=== PATIENT | male | born 1960 | race Caucasian/White ===

== ENCOUNTER → 2018-11-24 | Outpatient (REF) ==
--- NOTE | 2018-11-24 13:51 | REP ---
RIGHT KNEE, FOUR VIEWS: HISTORY: Degenerative joint disease. There is no acute fracture or dislocation. There is minimal narrowing of the medial knee joint space. Osteophytes are present on the tibia and patella. Calcification is present lateral to the distal femur. This represents ligamentous or tendon calcification. IMPRESSION: Degenerative change as described above. Electronically Signed by Virgilio Michaud MD 11/24/2018 01:56 P
--- NOTE | 2018-11-24 13:52 | REP ---
REASON: Disability determination. PRIORS: None. There is severe hypertrophic degenerative change seen involving the acromioclavicular joint with spurs inferiorly at the acromioclavicular joint and arising from the inferior surface of the acromion process projecting into the subacromial space. There is glenoid and humeral head marginal osteophytosis. There is no acute fracture, dislocation, or subluxation. IMPRESSION: Chronic changes as described above. Electronically Signed by Gustavo Rosario DO 11/24/2018 05:01 P
== END ==
LOC: M SMT 13:10
PROVIDERS: ATTEND Internal Medicine
DX: M25.78 Osteophyte, vertebrae (principal); M19.011 Primary osteoarthritis, right shoulder